=== PATIENT | female | born 1930 | race Caucasian/White ===

== ENCOUNTER 2016-11-29 22:45 | Emergency (ER) | payer MEDICARE ==
[~2016-11-29] VITALS: Ht 165.1 cm; Wt 50.8 kg
[2016-11-29] MEDS ORDERED: DIPHENOXYLATE/ATROPINE 2.5MG/0.025MG (LOMOTIL) TAB PO ONE (23:45)
[2016-11-30 01:54] VITALS: BP 148/60
== END 2016-11-30 00:10 | disposition home or self-care (01) ==
LOC: ED 22:47
DX: R19.7 Diarrhea, unspecified (principal)
CPT/HCPCS: 99282; A9270

== ENCOUNTER → 2016-11-30 | Outpatient (CLI) | payer MEDICARE ==
[2016-11-30 16:29] LABS: MEAN CORPUSCULAR HEMOGLOBIN 28.6 PG (26.0-34.0); MEAN CORPUSCULAR HGB CONC 32.6 g/dL (31.0-37.0); MEAN CORPUSCULAR VOLUME 88 FL (80-100); MEAN PLATELET VOLUME 10.6 FL (6.0-9.5); PLATELET COUNT 194 10^3uL (150-450); WHITE BLOOD COUNT 5.28 10^3uL (4.0-11.0)
[2016-11-30 17:01] LABS: ALBUMIN 4.2 g/dL (3.4-5.0); ANION GAP 13.4 MEQ/L (3-15); CALCULATED IONIZED CALCIUM 4.3 mg/dL (3.8-4.6); TOTAL PROTEIN 6.8 g/dL (6.4-8.5)
[2016-11-30 17:21] LABS: BAND NEUTROPHILS % 2 % (0-6); EOSINOPHILS % 0 % (0-4); LYMPHOCYTES # 1.3 #; MONOCYTES # 0.2 #; MONOCYTES % 3 % (3-11); SEGMENTED NEUTROPHILS % 71 % (51-67); TOTAL CELLS COUNTED 100
[2016-11-30 17:22] LABS: RBC MORPH NORMAL (NORMAL)
== END ==
LOC: LAB 16:00
PROVIDERS: ATTEND Surgery
DX: R19.7 Diarrhea, unspecified (principal); R10.9 Unspecified abdominal pain
CPT/HCPCS: 36415; 80053; 85007; 85027

== ENCOUNTER 2016-12-02 08:13 | Day surgery (SDC) | payer MEDICARE ==
[~2016-12-02] VITALS: Ht 165.1 cm; Wt 50.0 kg
[~2016-12-02 08:13] MED LIST: LACTATED RINGERS 1,000 ML IV SCH
[2016-12-02 08:36] VITALS: BP 133/89
[2016-12-02] MEDS: SODIUM CHLORIDE FLUSH 3 ML SYR IV PRN (09:28)
[2016-12-02] MEDS ORDERED: PROPOFOL 20 ML IV ONE (10:34)
[2016-12-02] MEDS ORDERED: MIDAZOLAM 2 MG/2 ML (VERSED) VIAL ONE (10:34)
[2016-12-02] MEDS ORDERED: ALFENTANIL 500 MCG/ML (ALFENTA) 5 ML AMP IV ONE (10:34)
[2016-12-02 11:22] VITALS: BP 141/66
[2016-12-02 11:51] VITALS: BP 172/69
== END 2016-12-02 12:18 | disposition home or self-care (01) ==
LOC: ASC 08:13
PROVIDERS: ATTEND Surgery
DX: R19.7 Diarrhea, unspecified (principal); K59.00 Constipation, unspecified; K62.1 Rectal polyp; K57.30 Diverticulosis of large intestine without perforation or abscess without bleeding; Q43.8 Other specified congenital malformations of intestine; I48.91 Unspecified atrial fibrillation; K21.9 Gastro-esophageal reflux disease without esophagitis; Z85.3 Personal history of malignant neoplasm of breast
CPT/HCPCS: 45330; 45331; 87507; 88305; 93005; J2250; J7120

== ENCOUNTER 2016-12-02 20:12 | Emergency (ER) | payer MEDICARE ==
[~2016-12-02] VITALS: Ht 165.1 cm; Wt 51.0 kg
[2016-12-02 22:02] LABS: BASOPHILS % (AUTO) 1 % (0-2); EOSINOPHILS # (AUTO) 0.1 10^3uL; EOSINOPHILS % (AUTO) 1 % (0-4); LYMPHOCYTES # (AUTO) 1.1 X10^3; MEAN CORPUSCULAR HEMOGLOBIN 28.9 PG (26.0-34.0); MEAN CORPUSCULAR HGB CONC 33.2 g/dL (31.0-37.0); MEAN CORPUSCULAR VOLUME 87 FL (80-100); MEAN PLATELET VOLUME 10.6 FL (6.0-9.5); MONOCYTES % (AUTO) 14 % (3-11); NEUTROPHILS # (AUTO) 5.3 X10^3; NEUTROPHILS % (AUTO) 71 % (51-67); PLATELET COUNT 187 10^3uL (150-450); WHITE BLOOD COUNT 7.48 10^3uL (4.0-11.0)
[2016-12-02 22:10] LABS: ALBUMIN 4.1 g/dL (3.4-5.0); ANION GAP 13.6 MEQ/L (3-15); CALCULATED IONIZED CALCIUM 4.1 mg/dL (3.8-4.6); TOTAL PROTEIN 6.8 g/dL (6.4-8.5)
[2016-12-02 23:15] VITALS: BP 130/59
== END 2016-12-02 23:16 | disposition home or self-care (01) ==
LOC: ED 20:13
DX: R10.30 Lower abdominal pain, unspecified (principal); R14.3 Flatulence; Z98.890 Other specified postprocedural states
CPT/HCPCS: 36415; 45330; 74022; 80053; 85025; 87507; 88305; 93005; 99283

== ENCOUNTER → 2016-12-28 | Outpatient (CLI) | payer MEDICARE ==
[2016-12-29 01:28] LABS: PH STOOL C 7.5
[2016-12-30 10:23] LABS: FECAL FAT WEIGHT 4 g
[2016-12-30 10:32] LABS: Fecal Fat Hrs Random h (())
== END ==
LOC: LAB 09:45
PROVIDERS: ATTEND Internal Medicine Gastroenterology
DX: R19.7 Diarrhea, unspecified (principal)
CPT/HCPCS: 36415; 82710; 83516; 83986; 84999; 85652; 87507; 89055

== ENCOUNTER 2017-01-14 22:34 | Emergency (ER) | payer MEDICARE ==
[~2017-01-14] VITALS: Ht 165.1 cm; Wt 50.0 kg
--- NOTE | 2017-01-14 23:14 | NUR ---
Patient thought she had to have a BM. She only passed some gas. She was upset and asked, "Well why am I only passing gas now?" I explained to her that it sometimes takes longer than other times for the immodium to work. She was very upset about "bothering" us. I reassured her that she isn't bothering us and I still wanted Dr. Real to see her and maybe they could come up with something that might help her with her bowel control. Patient stated, "I just worry that I am going to mess my pants."
[2017-01-14] MEDS ORDERED: SODIUM CHLORIDE FLUSH 3 ML SYR IV PRN (23:25)
[2017-01-14] MEDS ORDERED: SODIUM CHLORIDE FLUSH 10 ML SYR IV PRN (23:25)
[2017-01-14 23:49] LABS: BASOPHILS % (AUTO) 1 % (0-2); EOSINOPHILS # (AUTO) 0.1 10^3uL; EOSINOPHILS % (AUTO) 2 % (0-4); LYMPHOCYTES # (AUTO) 1.2 X10^3; MEAN CORPUSCULAR HEMOGLOBIN 28.9 PG (26.0-34.0); MEAN CORPUSCULAR HGB CONC 32.8 g/dL (31.0-37.0); MEAN CORPUSCULAR VOLUME 88 FL (80-100); MEAN PLATELET VOLUME 10.5 FL (6.0-9.5); MONOCYTES # (AUTO) 0.7 X10^3; MONOCYTES % (AUTO) 12 % (3-11); NEUTROPHILS # (AUTO) 3.4 X10^3; NEUTROPHILS % (AUTO) 63 % (51-67); PLATELET COUNT 182 10^3uL (150-450); WHITE BLOOD COUNT 5.36 10^3uL (4.0-11.0)
[2017-01-14 23:59] LABS: ALBUMIN 4.3 g/dL (3.4-5.0); ANION GAP 13.7 MEQ/L (3-15); TOTAL PROTEIN 7.1 g/dL (6.4-8.5)
[2017-01-15 00:18] LABS: BILIRUBIN,URINE Negative (Negative); CLARITY,URINE Clear; GLUCOSE, URINE (UA) Negative (Negative); LEUKOCYTE ESTERASE ,URINE Negative (Negative); PH,URINE 6.5 (5.0 - 8.0); UROBILINOGEN,URINE 0.2 mg/dL (0.2-1.0)
[2017-01-15 00:24] LABS: COLOR,URINE Light Yellow
[2017-01-15 00:25] LABS: RBC,URINE 0-2 /HPF; URINE CENTRIFUGED VOLUME 12 mL
[2017-01-15 01:23] VITALS: BP 150/69
== END 2017-01-15 01:22 | disposition home or self-care (01) ==
LOC: ED 22:35
DX: K52.9 Noninfective gastroenteritis and colitis, unspecified (principal)
CPT/HCPCS: 36415; 74022; 80053; 81003; 81015; 85025; 96360; 99284; J7030; 99282

== ENCOUNTER → 2017-01-18 | Outpatient (CLI) | payer MEDICARE | LOC: LAB 11:11 | PROVIDERS: ATTEND Family Medicine | DX: I48.1 Persistent atrial fibrillation (principal); E03.4 Atrophy of thyroid (acquired) | CPT/HCPCS: 36415; 71020; 83735; 84436; 84443; 93005 ==

== ENCOUNTER 2017-01-19 19:26 | Emergency (ER) | payer MEDICARE ==
[~2017-01-19] VITALS: Ht 165.1 cm; Wt 54.5 kg
[~2017-01-19 19:26] MED LIST changes: +AC500T PO; +ACET325T38 PO; +AMIT1TAB PO; +ASCO500T6 PO; +ASPI-345 PO; +ASPI325T4 PO; +BENZ-22 PO; +CALC600T12 PO; +CHOL10002 PO; +DGX.125T PO; +Diclofenac Sod TOP; +FERROUS GLUCON325 M2 PO; +LACT1CAP53 PO; -LACTATED RINGERS 1,000 ML IV SCH; +MAGN400O7 PO; +MELO-249 PO; +METH4TAB27 PO; +METO25TA2 PO; +MULT-301 PO; +NITR100C3 PO; +OMEG-77 PO; +OMEP20CA6 PO; +POLY1DRO2 OU; +SENN-36 PO; +SULF-221 PO; +SULF1TAB35 PO; +TRAZ-28 PO; +TRAZ100T92 PO; +VIT1CAPS14 PO
--- OUTSIDE RECORDS SUMMARY | 2017-01-19 19:29 | XMS REPORT | Continuity of Care Document ---
Author Author [facility] Organization [facility] Address Unknown Phone Unavailable Care Team Providers Care Commercial Counsel Name Role Phone Tip Abbott PCP [phone] Source Comments Some departments are not documenting in the electronic medical record. If you do not see the information that you expected, contact Release of Information in the Health Information Management department at [phone] for further assistance in locating additional records.[facility] Active Allergies and Adverse Reactions Not on File Current Medications Not on file Active Problems Not on file Social History Tobacco Use Types Packs/Day Years Used Date Never Assessed Plan of Care Health Maintenance Due Date Last Done Comments Physical (Comprehensive) 1936 Exam Pertussis Vaccine 1940 Tetanus Vaccine 1946 Breast Cancer Screening 1969 Shingles Vaccine 1989 Osteoporosis Screening 1994 Prevnar/Pneumovax (#1) 1994 Influenza Vaccine 07/08/2015 Results from Last 3 Months Not on file
--- OUTSIDE RECORDS SUMMARY | 2017-01-19 19:31 | XMS REPORT | Continuity of Care Document ---
Author Author [facility] Organization [facility] Address Unknown Phone Unavailable Care Team Providers Care Station Installation Supervisor Name Role Phone Tip Abbott PCP [phone] Source Comments Some departments are not documenting in the electronic medical record. If you do not see the information that you expected, contact Release of Information in the Health Information Management department at [phone] for further assistance in locating additional records.[facility] Active Allergies and Adverse Reactions Not [...]
[2017-01-19] MEDS ORDERED: SODIUM CHLORIDE FLUSH 3 ML SYR IV PRN (20:10)
[2017-01-19] MEDS ORDERED: SODIUM CHLORIDE FLUSH 10 ML SYR IV PRN (20:10)
[2017-01-19] MEDS ORDERED: ONDANSETRON 2 MG/ML (Z0FRAN) 2 ML VIAL IV ONE ×2 (20:10→20:55)
[2017-01-19] MEDS ORDERED: LOPERAMIDE 2 MG (IMODIUM) CAP PO ONE (20:10)
[2017-01-19 20:40] LABS: BASOPHILS % (AUTO) 1 % (0-2); EOSINOPHILS # (AUTO) 0.1 10^3uL; EOSINOPHILS % (AUTO) 2 % (0-4); LYMPHOCYTES # (AUTO) 1.2 X10^3; MEAN CORPUSCULAR HGB CONC 33.2 g/dL (31.0-37.0); MEAN CORPUSCULAR VOLUME 88 FL (80-100); MEAN PLATELET VOLUME 10.4 FL (6.0-9.5); MONOCYTES # (AUTO) 0.7 X10^3; MONOCYTES % (AUTO) 12 % (3-11); NEUTROPHILS # (AUTO) 3.9 X10^3; NEUTROPHILS % (AUTO) 65 % (51-67); PLATELET COUNT 220 10^3uL (150-450); WHITE BLOOD COUNT 5.99 10^3uL (4.0-11.0)
[2017-01-19 20:48] LABS: ALBUMIN 4.3 g/dL (3.4-5.0); ANION GAP 14.7 MEQ/L (3-15); TOTAL PROTEIN 7.1 g/dL (6.4-8.5)
[2017-01-19 23:07] VITALS: BP 151/54
[2017-02-26] MEDS ORDERED: COLE1TAB PO (11:03)
[2017-02-26] MEDS ORDERED: BENZ-22 PO ×2 (12:42→12:44)
== END 2017-01-19 22:35 | disposition home or self-care (01) ==
LOC: ED 19:27
DX: K52.9 Noninfective gastroenteritis and colitis, unspecified (principal)
CPT/HCPCS: 36415; 80053; 85025; 96361; 96374; 99284; A9270; J2405; J7030; 99282

== ENCOUNTER 2017-01-25 19:10 | Emergency (ER) | payer MEDICARE ==
[~2017-01-25] VITALS: Ht 165.1 cm; Wt 49.0 kg
--- NOTE | 2017-01-25 20:40 | NUR ---
UP TO TOILET W ASSIST. NO BM ON TOILET PAPER PATIENT DUG AT RECTAL AREA WITH TOILET PAPER X 3
--- NOTE | 2017-01-25 21:09 | NUR ---
UP TO TOILET AGAIN TO VOID
[2017-01-25 21:45] VITALS: BP 155/83
== END 2017-01-25 21:46 | disposition home or self-care (01) ==
LOC: ED 19:11
DX: K59.00 Constipation, unspecified (principal)
CPT/HCPCS: 74000; 99282

== ENCOUNTER → 2017-01-27 | Outpatient (REF) | payer MEDICARE ==
[~2017-01-27] MED LIST changes: +HSCO125 SL
[2017-01-28 21:11] LABS: PH STOOL C 7.5
== END ==
LOC: LAB 15:27
PROVIDERS: ATTEND Internal Medicine Gastroenterology
DX: R19.7 Diarrhea, unspecified (principal)
CPT/HCPCS: 82705; 83986; 84999; 87507; 89055; 89160

== ENCOUNTER 2017-02-01 19:39 | Emergency (ER) | payer MEDICARE ==
[~2017-02-01] VITALS: Ht 160 cm; Wt 50.6 kg
[2017-02-01] MEDS ORDERED: DIPHENOXYLATE/ATROPINE 2.5MG/0.025MG (LOMOTIL) TAB PO ONE (20:20)
[2017-02-01] MEDS ORDERED: ONDANSETRON 4 MG (ZOFRAN) ORAL DISSOLVE TAB PO ONE (20:25)
[2017-02-01 20:45] VITALS: BP 142/60
== END 2017-02-01 20:55 | disposition home or self-care (01) ==
LOC: ED 19:40
DX: R11.0 Nausea (principal); R19.7 Diarrhea, unspecified
CPT/HCPCS: 99282; A9270

== ENCOUNTER → 2017-02-01 | Outpatient (CLI) | payer MEDICARE ==
[~2017-02-01] MED LIST changes: -HSCO125 SL
[2017-02-01 10:39] LABS: MEAN CORPUSCULAR HEMOGLOBIN 28.7 PG (26.0-34.0); MEAN CORPUSCULAR HGB CONC 32.1 g/dL (31.0-37.0); MEAN PLATELET VOLUME 11.2 FL (6.0-9.5); WHITE BLOOD COUNT 4.94 10^3uL (4.0-11.0)
[2017-02-01 10:50] LABS: ALBUMIN 4.4 g/dL (3.4-5.0); ANION GAP 13.3 MEQ/L (3-15); CALCULATED IONIZED CALCIUM 4.1 mg/dL (3.8-4.6); TOTAL PROTEIN 7.4 g/dL (6.4-8.5)
== END ==
LOC: LAB 10:19
PROVIDERS: ATTEND Family Medicine
DX: R19.7 Diarrhea, unspecified (principal)
CPT/HCPCS: 36415; 80053; 85027

== ENCOUNTER 2017-02-02 13:11 | Emergency (ER) | payer MEDICARE ==
[~2017-02-02] VITALS: Ht 165.1 cm; Wt 50.7 kg
[2017-02-02 15:51] LABS: BILIRUBIN,URINE Negative (Negative); CLARITY,URINE Clear; COLOR,URINE Yellow; GLUCOSE, URINE (UA) Negative (Negative); LEUKOCYTE ESTERASE ,URINE Negative (Negative); PH,URINE 6.5 (5.0 - 8.0); UROBILINOGEN,URINE 0.2 mg/dL (0.2-1.0)
[2017-02-02 17:09] VITALS: BP 155/67
== END 2017-02-02 17:08 | disposition home or self-care (01) ==
LOC: ED 13:12
DX: R30.0 Dysuria (principal); K52.9 Noninfective gastroenteritis and colitis, unspecified
CPT/HCPCS: 81003; 99282; 99283

== ENCOUNTER 2017-02-10 11:54 | Emergency (ER) | payer MEDICARE ==
[~2017-02-10] VITALS: Ht 165.1 cm; Wt 49.0 kg
--- OUTSIDE RECORDS SUMMARY | 2017-02-10 11:59 | XMS REPORT | Continuity of Care Document ---
Author Author [facility] Address Unknown Phone Unavailable Care Team Providers Care Band Tier Name Role Phone ANGEL MENDES MD PCP [phone] Insurance Providers Payer Name Policy Number Subscriber Name Relationship Medicare A And B [id number] Shira Byrnes 18 Self / Same As Patient Blue Cross [facility] Supp [id number] Shira Byrnes 18 Self / Same As Patient Advance Directives Directive Response Recorded Date/Time Advanced Directives Unknown 02/02/17 1:12pm Type Durable Power of Livestock Nutritionist 01/25/17 7:14pm Type Living Will 01/25/17 7:14pm Other Robel & Yvon simmons 01/25/17 7:14pm Chief Complaint and Reason for Visit Chief Complaint Genitourinary Complaint Reason for Visit Diarrhea Problems Active Problems Medical Problem Onset Date Status Abdominal pain 11/20/2012 Acute Abdominal pain Unknown Resolved Atrial arrhythmia 11/20/2012 Chronic Cataract 10/25/2013 Resolved Chronic diarrhea 11/21/2012 Acute Chronic diarrhea ~01/25/2017 Acute Constipation ~01/25/2017 Acute Diarrhea 04/19/2014 Acute Diarrhea Unknown Acute Drug-induced enteritis ~11/26/2015 Resolved Gastrointestinal hemorrhage 11/21/2012 Acute Hematuria ~06/07/2016 Resolved History of chronic diarrhea ~01/14/2017 Acute Left lower quadrant pain 04/17/2014 Acute Lower gastrointestinal hemorrhage 04/17/2014 Acute Occult blood in stools ~06/07/2016 Resolved UTI (urinary tract infection) ~09/26/2016 Resolved Upper respiratory infection ~01/01/2015 Resolved Urinary tract infection ~11/19/2015 Resolved Medications Current Home Medications Medication Dose Units Route Directions Days/Qty Instructions Start Date Amitriptyline/Chlordiazepoxide 1 Each 1 Each ORAL Bedtime 11/20/12 Aspirin 81 Mg 81 Mg ORAL Daily 11/25/12 Multivitamin 1 Each 1 Each ORAL Daily 11/25/12 Ascorbic Acid 500 Mg 500 Mg ORAL Daily 11/25/12 Cholecalciferol 1,000 Unit 1,000 Unit ORAL Daily 11/25/12 Metoprolol Tartrate 25 Mg 25 Mg ORAL Twice A Day 11/25/12 Omeprazole 20 Mg 20 Mg ORAL Daily 11/25/12 Magnesium Hydroxide 400 Mg/5 Ml 30 Ml ORAL Daily as needed for Constipation 04/17/14 Polyvinyl Alcohol/Povidone 1 Each 2 Drops OPTHALMIC Every 4HRS as needed for Dry Eyes 1 04/19/14 Acetaminophen (Tylenol) 500 Mg 500 Mg ORAL Three Times A Day Trazodone Hcl 50 Mg 25 Mg ORAL Bedtime 11/19/15 Sulfamethoxazole/Trimethoprim (Bactrim Ds 800MG/160MG) 1 Each 1 Each ORAL Twice A Day 09/26/16 Vit C/Rojas Ac/Lut/Copper/Znox 1 Each 1 Each ORAL Daily 12/01/16 [place]-3 Fatty Acids/Fish Oil 1 Each 1 Each ORAL Daily 12/01/16 Calcium Carbonate 600 Mg 600 Mg ORAL Daily 12/01/16 Lactobacillus Acidophilus 1 Mg 1 Mg ORAL Daily 12/01/16 Past Home Medications Medication Directions Ordered Status Aspirin 325 Mg Tablet, 325 Mg Oral Daily 11/20/12 Discontinued Trazodone Hcl 50 Mg Tablet, 50 Mg Oral Daily 11/20/12 Discontinued Meloxicam 15 Mg Tablet, 15 Mg Oral Daily 11/20/12 Discontinued Acetaminophen 500 Mg Tab, 500 Mg Oral Three Times A Day 11/20/12 Discontinued Digoxin 0.125 Mg Tab, 0.125 Mg Oral Daily 11/20/12 Discontinued Trazodone Hcl 50 Mg Tab, 25 Mg Oral Bedtime 11/25/12 Discontinued Acetaminophen 325 Mg Tablet, 650 Mg Oral Every 4HRS as needed 11/25/12 Discontinued Ferrous Gluconate 325 Mg Tablet, 325 Mg Oral Daily 11/25/12 Discontinued Sennosides 8.6 Mg Tablet, 1 Tab Oral Daily 04/17/14 Discontinued [Diclofenac Sod] 100 Gm Gel, 2 Gm Topical Twice A Day 04/19/14 Discontinued Methylprednisolone 21 Tab/Pkt Tablet, 21 Tab Oral Daily 01/03/15 Discontinued Benzonatate 100 Mg Capsule, 100 Mg Oral Every 6 Hours as needed for Cough Discontinued Trazodone Hcl 100 Mg Tablet, Unknown Dose Oral Bedtime 06/26/15 Discontinued Nitrofurantoin Monohyd/M-Cryst 100 Mg Capsule, 100 Mg Oral Twice A Day With Meals 11/19/15 Discontinued Sulfamethoxazole/Trimethoprim 1 Each Tablet, 1 Tab Oral Twice A Day for Infection 06/07/16 Discontinued Social History Social History Problem Response Recorded Date/Time Onset Date Status Exposure to occupational hazards No 04/17/2014 12:05pm Query Response Start Date Stop Date Smoking Status Never smoker Hospital Discharge Instructions No hospital discharge instructions. Plan of Care Discharge Date 02/02/17 5:08pm Disposition 01 HOME OR SELF-CARE Condition at Discharge Stable Instructions/Education Provided [place] Diet Prescriptions See Medication Section Referrals ANGEL MENDES MD - Additional Instructions/Education Some of your test results may not be complete prior to your leaving the Emergency Department. The Emergency Department is not authorized to give test results over the phone. Please contact the doctor's office listed in this packet of information for your final results. Follow up with your primary care physician or return to the Emergency Department for worsening or worrisome symptoms. * Emergency Department phone number: [phone], x [phone]* MEDICAL RECORD If you need copies of your X-rays, call [phone]. If you need copies of your medical record, including lab results, a signed authorization for release of records will be required. A telephone call for release of Health Information is not allowed. BILLING Billing can sometimes be confusing and frustrating. To help avoid confusion in the future, please take a moment to acquaint yourself with the billing parties for services. SERVICE BILLING [facility] Emergency Room Services [facility] Physician Services [facility] X-rays [facility] Patients will receive bills for services from the appropriate provider. If you have any questions about your [facility] bill, our staff will be happy to assist you. Please call [phone], and ask for the billing department. THANK YOU for choosing [facility] as your emergency care provider! Care Plan and Goals ~~Discharge Care Plan~~ Problem: Nausea, vomiting or diarrhea Goal: Decrease in nausea, vomiting or diarrhea Instructions: Encourage fluids approximately 6-8 glasses of water or noncarbonated fluids. Take medication(s) as directed. Follow home discharge instructions. Follow up with primary care physicians or lease administrator as directed. Functional Status No functional status results. Allergies, Adverse Reactions, Alerts Allergen Type Severity Reaction Status Last Updated hydrocodone bitartrate Allergy Unknown Active 02/01/17 Penicillin Allergy Unknown Active 02/01/17 Codeine Allergy Unknown Active 02/01/17 Acetaminophen Allergy Unknown Active 02/01/17 Tramadol Allergy Unknown Active 02/01/17 Immunizations Name Given Type Status Date Influenza Vaccine Received if Current 08/16/15 Historical Historical Vital Signs Acute Vital Signs Vital Response Date/Time Temperature (Fahrenheit) 98.7 02/02/2017 5:09pm Pulse 89 bpm 02/02/2017 5:09pm Respirations 16 02/02/2017 5:09pm Height 5 ft 5 in Weight 111 lb Body Mass Index 18.0 kg/m^2 Results Laboratory Results Test Name Result Units Flags Reference Collection Date/Time Result Date/ Time Comments White Blood Count 5.36 10^3uL 4.0-11.0 01/14/2017 11:44pm 01/14/2017 11 :52pm Red Blood Count 4.05 10^6uL 4.00-5.00 01/14/2017 11:44pm 01/14/2017 11: 52pm Hemoglobin 11.7 g/dL L 12.0-15.5 01/14/2017 11:44pm 01/14/2017 11:52pm Hematocrit 35.70 % 35.00-45.00 01/14/2017 11:44pm 01/14/2017 11:52pm Mean Corpuscular Volume 88 FL 80-100 01/14/2017 11:44pm 01/14/2017 11: 52pm Mean Corpuscular Hemoglobin 28.9 PG 26.0-34.0 01/14/2017 11:44pm 2016 11:52pm Mean Corpuscular Hemoglobin Concent 32.8 g/dL 31.0-37.0 01/14/2017 11: 44pm 01/14/2017 11:52pm Red Cell Distribution Width 13.0 % 11.8-15.6 01/14/2017 11:44pm 2016 11:52pm Platelet Count 182 10^3uL 150-450 01/14/2017 11:44pm 01/14/2017 11: 52pm Mean Platelet Volume 10.5 FL H 6.0-9.5 01/14/2017 11:44pm 01/14/2017 11: 52pm Neutrophils (%) (Auto) 63 % 51-67 01/14/2017 11:44pm 01/14/2017 11: 52pm Lymphocytes (%) (Auto) 22 % 20-46 01/14/2017 11:44pm 01/14/2017 11: 52pm Monocytes (%) (Auto) 12 % H 3-11 01/14/2017 11:44pm 01/14/2017 11:52pm Eosinophils (%) (Auto) 2 % 0-4 01/14/2017 11:44pm 01/14/2017 11:52pm Basophils (%) (Auto) 1 % 0-2 01/14/2017 11:44pm 01/14/2017 11:52pm Neutrophils # (Auto) 3.4 X10^3 01/14/2017 11:44pm 01/14/2017 11:52pm Lymphocytes # (Auto) 1.2 X10^3 01/14/2017 11:44pm 01/14/2017 11:52pm Monocytes # (Auto) 0.7 X10^3 01/14/2017 11:44pm 01/14/2017 11:52pm Eosinophils # (Auto) 0.1 10^3uL 01/14/2017 11:44pm 01/14/2017 11: 52pm Basophils # (Auto) 0.1 10^3uL 01/14/2017 11:44pm 01/14/2017 11:52pm Volume Urine Centrifuged 12 mL 01/15/2017 12:10am 01/15/2017 12: 25am Urine Collection Type CLEAN CATCH 01/15/2017 12:10a01/15/2017 12: 25am Urine Color Light Yellow 01/15/2017 12:10am 01/15/2017 12:24am Urine Clarity Clear 01/15/2017 12:10am 01/15/2017 12:24am Urine pH 6.5 5.0 - 8.0 01/15/2017 12:10am 01/15/2017 12:24am Urine Specific [place] 1.010 1.005-1.030 01/15/2017 12:10am 2016 12:24am Urine Protein Negative Negative 01/15/2017 12:10a01/15/2017 12: 24am Urine Glucose (UA) Negative Negative 01/15/2017 12:10am 01/15/2017 12 :24am Urine Blood Trace-intact H Negative 01/15/2017 12:10am 01/15/2017 12: 24am Urine Ketones Negative Negative 01/15/2017 12:10am 01/15/2017 12: 24am Urine Nitrite Negative Negative 01/15/2017 12:10am 01/15/2017 12: 24am Urine Bilirubin Negative Negative 01/15/2017 12:10am 01/15/2017 12: 24am Urine Urobilinogen 0.2 mg/dL 0.2-1.0 01/15/2017 12:10am 01/15/2017 12: 24am Urine Leukocyte Esterase Negative Negative 01/15/2017 12:10am 2016 12:24am Urine Microscopic RBC 0-2 /HPF 01/15/2017 12:10am 01/15/2017 12:25am Urine WBC None Seen /HPF 01/15/2017 12:10am 01/15/2017 12:25am Urine Bacteria None Seen /HPF 01/15/2017 12:10am 01/15/2017 12:25am Urine Squamous Epithelial Cells 0-2 /LPF 01/15/2017 12:10am 2016 12:25am Sodium Level 138 mmol/L 135-150 01/14/2017 11:44pm 01/14/2017 11:59pm Potassium Level 4.2 mmol/L 3.5-5.1 01/14/2017 11:44pm 01/14/2017 11: 59pm Chloride Level 99 mmol/L 98-108 01/14/2017 11:44pm 01/14/2017 11:59pm Carbon Dioxide Level 29 mmol/L 22-29 01/14/2017 11:44pm 01/14/2017 11: 59pm Anion Gap 13.7 MEQ/L 3-15 01/14/2017 11:44pm 01/14/2017 11:59pm Blood Urea Nitrogen 22 mg/dL # H 7-18 01/14/2017 11:44pm 01/14/2017 11: 59pm Creatinine 0.49 mg/dL L 0.6-1.2 01/14/2017 11:44pm 01/14/2017 11:59pm BUN/Creatinine Ratio 45 H 10-20 01/14/2017 11:44pm 01/14/2017 11:59pm Estimat Glomerular Filtration Rate 144.5 01/14/2017 11:44pm 2016 11:59pm Estimated GFR (Non- 119.5 01/14/2017 11:44pm 2016 11:59pm Glucose Level 104 mg/dL 70-110 01/14/2017 11:44pm 01/14/2017 11:59pm Calculated Osmolality 270 mosm/L L 280-300 01/14/2017 11:44pm 2016 11:59pm Calcium Level 9.1 mg/dL 8.8-10.8 01/14/2017 11:44pm 01/14/2017 11:59pm Calcium/Ionized Calcium Ratio 4.0 mg/dL 3.8-4.6 01/14/2017 11:44pm 08/2017 11:59pm Total Bilirubin 0.5 mg/dL 0.1-1.0 01/14/2017 11:44pm 01/14/2017 11: 59pm Alkaline Phosphatase 102 U/L 38-126 01/14/2017 11:44pm 01/14/2017 11: 59pm Aspartate Amino Transf (AST/SGOT) 36 U/L 15-37 01/14/2017 11:44pm 01/14 11:59pm Alanine Aminotransferase (ALT/SGPT) 57 U/L 30-65 01/14/2017 11:44pm 08/2017 11:59pm Total Protein 7.1 g/dL 6.4-8.5 01/14/2017 11:44pm 01/14/2017 11:59pm Albumin 4.3 g/dL 3.4-5.0 01/14/2017 11:44pm 01/14/2017 11:59pm Albumin/Globulin Ratio 1.535 1.1-1.8 01/14/2017 11:44pm 01/14/2017 11 :59pm Pending Laboratory Results Test Name Collection Date/Time Procedures Procedure Status Date Provider(s) ROUTINE VENIPUNCTURE Completed 01/14/17 X-RAY EXAM SERIES ABDOMEN Completed 01/14/17 COMPREHEN METABOLIC PANEL Completed 01/14/17 URINALYSIS AUTO W/O SCOPE Completed 01/14/17 MICROSCOPIC EXAM OF URINE Completed 01/14/17 COMPLETE CBC W/AUTO DIFF WBC Completed 01/14/17 HYDRATION IV INFUSION INIT Completed 01/14/17 EMERGENCY DEPT VISIT Completed 01/14/17 Completed 01/14/17 ROUTINE VENIPUNCTURE Completed 01/18/17 CHEST X-RAY 2VW FRONTAL&LATL Completed 01/18/17 ASSAY OF MAGNESIUM Completed 01/18/17 ASSAY OF TOTAL THYROXINE Completed 01/18/17 ASSAY THYROID STIM HORMONE Completed 01/18/17 ELECTROCARDIOGRAM TRACING Completed 01/18/17 X-RAY EXAM OF ABDOMEN Completed 01/25/17 EMERGENCY DEPT VISIT Completed 01/25/17 Encounters Encounter Location Arrival/Admit Date Discharge/Depart Date Attending Provider Departed Emergency Room [facility] 02/02/17 1:12pm 02/02/17 5:08pm KARI TIMMONS MD Departed Emergency Room [facility] 02/01/17 7:40pm 02/01/17 8:55pm LETICIA RIVERA DO Registered [facility] 02/01/17 10:19am ANGEL MENDES MD Registered [facility] 01/27/17 3:27pm Ed Sharp Departed Emergency Room [facility] 01/25/17 7:11pm 01/25/17 9:46pm FRANCESCA VALVERDE MD Departed Emergency Room [facility] 01/19/17 7:27pm 01/19/17 10:35pm REMI VALLADARES MD Registered [facility] 01/18/17 11:11am ANGEL MENDES MD Departed Emergency Room [facility] 01/14/17 10:35pm 01/15/17 1:22am REMI VALLADARES MD Recent Diagnosis
[2017-02-10] MEDS ORDERED: HYOSCYAMINE 0.125 MG (LEVSIN) TABLET SL ONE (13:50)
[2017-02-10 14:05] VITALS: BP 147/70
[2017-02-10] MEDS ORDERED: HSCO125 SL (14:10)
== END 2017-02-10 14:15 | disposition home or self-care (01) ==
LOC: ED 11:56
DX: K52.9 Noninfective gastroenteritis and colitis, unspecified (principal)
CPT/HCPCS: 99283; A9270

== ENCOUNTER → 2017-02-26 | Emergency (ER) | payer MEDICARE ==
[~2017-02-26] VITALS: Ht 165.1 cm; Wt 48.0 kg
[~2017-02-26] MED LIST changes: +COLE1TAB PO; +HSCO125 SL
--- OUTSIDE RECORDS SUMMARY | 2017-02-26 10:25 | XMS REPORT | Continuity of Care Document ---
Author Author [facility] Organization [facility] Address Unknown Phone Unavailable Care Team Providers Care Surgical Pathologist Name Role Phone Tip Abbott PCP [phone] Source Comments Some departments are not documenting in the electronic medical record. If you do not see the information that you expected, contact Release of Information in the Health Information Management department at [phone] for further assistance in locating additional records.[facility] Active Allergies and Adverse Reactions Not on File Current Medications Not on file Active Problems Not on file Social History Tobacco Use Types Packs/Day Years Used Date Never Assessed Plan of Care Health Maintenance Due Date Last Done Comments Physical (Comprehensive) 1936 Exam Pertussis Vaccine 1940 Tetanus Vaccine 1946 Shingles Vaccine 1989 Osteoporosis Screening 1994 Prevnar/Pneumovax (#1) 1994 Influenza Vaccine 07/08/2017 Results from Last 3 Months Not on file
--- OUTSIDE RECORDS SUMMARY | 2017-02-26 10:26 | XMS REPORT | Continuity of Care Document ---
Author Author [facility] Organization [facility] Address Unknown Phone Unavailable Care Team Providers Care Headwaiter/Headwaitress Name Role Phone Tip Abbott PCP [phone] Source Comments Some departments are not documenting in the electronic medical record. If you do not see the information that you expected, contact Release of Information in the Health Information Management department at [phone] for further assistance in locating additional records.[facility] Active Allergies and Adverse Reactions Not on [...]
[2017-02-26 10:31] VITALS: BP 123/64
--- NOTE | 2017-02-26 11:09 | NUR ---
pt attempting to cough, bits of veg soup with dumplings in emesis container
--- NOTE | 2017-02-26 11:49 | NUR ---
Patient rounds, no new complaints.
--- NOTE | 2017-02-26 12:03 | Diagnostic Imaging Report ---
INDICATION: Cough, possible aspiration. Possible foreign body. COMPARISON: Comparison is made with a prior study from January 18, 2017. FINDINGS: The lungs are hyperinflated with chronic prominence of the basilar interstitial markings which is unchanged from the previous study. There is also some pleural parenchymal density at the left base which appears stable and likely reflects a region of scarring. There is no new region of alveolar infiltrate or consolidation evident. There is no effusion or pneumothorax. Heart size and mediastinal contours appear unchanged without evidence of failure. There is advanced aortic atherosclerosis. There are surgical clips within the right axilla and right upper quadrant but no unexpected foreign body. IMPRESSION: 1. Stable radiographic appearance of the chest. Background pulmonary hyperinflation and interstitial prominence with left basilar pleural parenchymal scarring appear stable. No new infiltrates or consolidation demonstrated. There is no evidence of a radiodense foreign body. Dictated by: Dictated on workstation # [id number]
--- NOTE | 2017-02-26 12:42 | NUR ---
pt sitting up in bed with son by her side
== END | disposition home or self-care (01) ==
LOC: ED 10:23
DX: R13.19 Other dysphagia (principal); R09.89 Other specified symptoms and signs involving the circulatory and respiratory systems
CPT/HCPCS: 71020; 99283